=== PATIENT | male | born 1990 | race Caucasian/White ===

== ENCOUNTER 2025-06-01 22:16 | Emergency (ER) | payer OTHER ==
[~2025-06-01] VITALS: Ht 190.5 cm; Wt 108.9 kg
[2025-06-01 23:18] LABS: PLATELET COUNT (AUTO) 245 K/uL (150-450); RED BLOOD CELL COUNT(AUTO) 5.50 MIL/uL (4.5-6.0); RED CELL DISTRIBUTION WIDTH 12.9 % (11.5-15.0); WHITE BLOOD COUNT (AUTO) 15.4 K/uL (4.3-11.0)
[2025-06-01 23:26] LABS: CALCIUM, SERUM 9.2 mg/dL (8.5-10.1); CREATININE 1.0 mg/dL (0.6-1.3); SODIUM SERUM 137.0 mmol/L (136-145); UREA NITROGEN, BLOOD 11.0 mg/dL (7-18)
[2025-06-01] MEDS: MORPHINE SULFATE INJ 2 MG/ML DISP.SYRIN IV ONE (23:29)
[2025-06-01] MEDS ORDERED: CT SWABBABLE VALVE TRANS SET 1 EA INFUS.SET MC ONE (23:29)
[2025-06-01] MEDS ORDERED: IV NS 0.9% 250 ML IV ONE (23:29)
[2025-06-01] MEDS ORDERED: MORPHINE SULFATE INJ 4 MG/ML DISP.SYRIN ONE (23:29)
[2025-06-01] MEDS ORDERED: IOHEXOL-350 100 ML VIAL IV ONE (23:29)
[2025-06-02] MEDS ORDERED: AMOX/CLAVULANATE 875 MG TABLET ONE (01:16)
[2025-06-02] MEDS ORDERED: KETOROLAC TROMETHAMINE INJ 30 MG/ML VIAL ONE (01:16)
[2025-06-02] MEDS: KETOROLAC TROMETHAMINE INJ 30 MG/ML VIAL IV ONE (01:17)
[2025-06-02] MEDS: AMOX/CLAVULANATE 875 MG TABLET PO ONE (01:17)
[2025-06-02] MEDS ORDERED: KETO10TA2 PO (02:52)
[2025-06-02] MEDS ORDERED: AMOX-430 PO (02:52)
[2025-06-02 03:10] VITALS: BP 136/88; TEMP 98.7; O2SAT 98
== END 2025-06-02 04:01 | disposition home or self-care (01) ==
LOC: ER 22:18
DX: J18.9 Pneumonia, unspecified organism (principal); R00.0 Tachycardia, unspecified; F17.200 Nicotine dependence, unspecified, uncomplicated; Z87.74 Personal history of (corrected) congenital malformations of heart and circulatory system; Z88.2 Allergy status to sulfonamides; Z90.49 Acquired absence of other specified parts of digestive tract; Z98.890 Other specified postprocedural states; Z86.79 Personal history of other diseases of the circulatory system
CPT/HCPCS: 99285; 74174; 96374; 71275; 71045; 93005; 85025; 80048; 36415 ×2; 96375; 84484; J2270; J7050; Q9967; J1885